=== PATIENT | female | born 1970 | race Caucasian/White ===

== ENCOUNTER → 2017-12-04 | Outpatient (REF) | DX: Z02.9 Encounter for administrative examinations, unspecified (principal) ==

== ENCOUNTER → 2018-01-13 | Outpatient (CLI) | payer OTHER ==
[~2018-01-13] MED LIST: ALB18R INH; LEVO1TAB31 PO; MONT10TA PO; MULT1CAP59 PO; PANT40TA65 PO
--- NOTE | 2018-01-13 15:21 | RADIOLOGY IMAGING REPORT ---
FACILITY: [facility] PATIENT NAME: Rosa Isela Lux : 1970 MR: [id number] V: [id number] EXAM DATE: ORDERING PHYSICIAN: KALANI NICKERSON TECHNOLOGIST: Location: [facility] Patient: Rosa Isela Lux : 1970 Visit/Account:[id number] Date of Sevice: 01/13/2018 Exam type: CHEST PA AND LAT History: asthma Comparison: None. Findings: The lungs are free of acute effusions, infiltrates or edema. There is no evidence of a pneumothorax or pneumomediastinum. Cardiac silhouette is normal in size. The trachea is in midline. IMPRESSION: 1. No acute cardiopulmonary process is seen Report Dictated By: Kelsy Frye MD at 01/13/2018 3:17 PM Report E-Signed By: Kelsy Frye MD at 01/13/2018 3:17 PM WSN:[email or web address]
== END ==
LOC: RAD 14:08
PROVIDERS: ATTEND Internal Medicine
DX: J45.909 Unspecified asthma, uncomplicated (principal)
CPT/HCPCS: 71046

== ENCOUNTER → 2018-01-14 | Outpatient (CLI) | payer OTHER | LOC: RESP 06:49 | PROVIDERS: ATTEND Internal Medicine | DX: J45.909 Unspecified asthma, uncomplicated (principal) | CPT/HCPCS: 94060 ==

== ENCOUNTER → 2018-04-06 | Outpatient (CLI) | payer OTHER ==
[~2018-04-06] MED LIST changes: +UMEC1DIS INH
== END ==
LOC: LAB 09:27
PROVIDERS: ATTEND Internal Medicine
DX: J45.909 Unspecified asthma, uncomplicated (principal); K21.9 Gastro-esophageal reflux disease without esophagitis
CPT/HCPCS: 36415; 84439; 84443

== ENCOUNTER → 2018-06-10 | Outpatient (CLI) | payer OTHER ==
--- NOTE | 2018-06-11 10:44 | RADIOLOGY IMAGING REPORT ---
[place] [facility] [place] NAME: BHUPENDRA ASHRAF : [id number] MR: [id number] V: [id number] EXAM DATE: [id number] ORDERING PHYSICIAN: JIMMY SPIVEY TECHNOLOGIST: Eugenie Rosado PROCEDURE:BILATERAL DIGITAL SCREENING MAMMOGRAM WITH CAD ASSISTED INTERPRETATION & 3D TOMOSYNTHESIS COMPARISON:Prior mammogram 03/24/17. INDICATIONS:SCREENING FINDINGS: Moderately heterogeneous fibroglandular tissue is seen throughout the breasts. The parenchymal pattern has remained stable allowing for difference in mammographic technique & patient positioning. There is no evidence of malignant appearing mass, malignant appearing calcifications or other secondary sign of malignancy in either breast. DIAGNOSTIC CATEGORY 1--NEGATIVE. RECOMMENDATIONS: ROUTINE MAMMOGRAM AND CLINICAL EVALUATION. IMPRESSION: BIRADS 1: Negative. No significant abnormality is seen. Dictated by: Kelsy Frye M.D. on 06/10/2018 at 16:37 Transcribed by: ESTEPHANIA on 06/11/2018 at 7:51 Approved by: Kelsy Frye M.D. on 06/11/2018 at 10:43 [facility]
== END ==
LOC: MAMO 02:19
PROVIDERS: ATTEND Specialist
DX: Z12.31 Encounter for screening mammogram for malignant neoplasm of breast (principal)
CPT/HCPCS: 77063; 77067

== ENCOUNTER → 2018-11-09 | Outpatient (REF) | DX: Z02.89 Encounter for other administrative examinations (principal) ==

== ENCOUNTER → 2018-11-13 | Outpatient (CLI) | payer OTHER | LOC: LAB 08:44 | PROVIDERS: ATTEND Internal Medicine | DX: J45.909 Unspecified asthma, uncomplicated (principal); R94.6 Abnormal results of thyroid function studies; K21.9 Gastro-esophageal reflux disease without esophagitis; R89.9 Unspecified abnormal finding in specimens from other organs, systems and tissues | CPT/HCPCS: 36415; 81001; 82040; 82247; 82310; 82374; 82435; 82550; 82565; 82610; 82947; 84075; 84132; 84155; 84295; 84450; 84460; 84520 ==

== ENCOUNTER → 2018-11-16 | Outpatient (CLI) | payer OTHER | LOC: LAB 09:25 | PROVIDERS: ATTEND Internal Medicine | DX: N17.9 Acute kidney failure, unspecified (principal) | CPT/HCPCS: 82570 ==

== ENCOUNTER → 2018-11-19 | Outpatient (CLI) | payer OTHER ==
--- NOTE | 2018-11-19 14:29 | RADIOLOGY IMAGING REPORT ---
FACILITY: [facility] [place] PATIENT NAME: Rosa Isela Lux : 1970 MR: [id number] V: [id number] EXAM DATE: ORDERING PHYSICIAN: KALANI NICKERSON TECHNOLOGIST: [place] [facility] [place] Isela Lux : 1970 Visit/Account:[id number] Date of Sevice: 11/19/2018 KIDNEYS EXAMINATION: Renal ultrasound. History: AK I, elevated serum creatinine COMPARISON STUDIES: FINDINGS: Kidneys: Right kidney- 10 x 3.7 x 5.3 cm Left kidney- 10 x 5.6 x 5.8 cm Uniform and symmetric blood flow in each kidney by Doppler ultrasound. Hydronephrosis: none Resistive index on the right 0.59 on the left 0.54 Bladder: Prevoid findings 161 mL. Post void residual 60 mL. Bilateral ureteral jets are present. Abdominal aorta and IVC: Aorta and IVC are patent by Doppler ultrasound. IMPRESSION: Post void bladder residual 60 mL Sonographic images of the kidneys are unremarkable Report Dictated By: Kelsy Frye MD at 11/19/2018 2:23 PM Report E-Signed By: Kelsy Frye MD at 11/19/2018 2:25 PM WSN:[email or web address]
== END ==
LOC: US 00:09
PROVIDERS: ATTEND Internal Medicine
DX: R33.9 Retention of urine, unspecified (principal)
CPT/HCPCS: 76705

== ENCOUNTER → 2018-11-25 | Outpatient (CLI) | payer OTHER ==
[~2018-11-25] MED LIST changes: +RANI-366 PO
== END ==
LOC: LAB 12:57
PROVIDERS: ATTEND Internal Medicine
DX: N17.9 Acute kidney failure, unspecified (principal); J45.909 Unspecified asthma, uncomplicated; K21.9 Gastro-esophageal reflux disease without esophagitis
CPT/HCPCS: 36415; 82040; 82247; 82310; 82374; 82435; 82550; 82565; 82947; 84075; 84132; 84155; 84295; 84450; 84460; 84520